=== PATIENT | female | born 1945 | race Caucasian/White ===

== ENCOUNTER → 2020-09-20 | Outpatient (CLI) | payer MEDICARE ==
[~2020-09-20] MED LIST: ACET325 PO; ALBU90OI INH; ALBU90OI6 INH; ASCO500 PO; ASPI81CH PO; AZIT250 PO; AZIT500 PO; Albuterol2.5 MG/0.5 INH; BENZ100A PO; CEPACOL SORE T1 EACH MM; CODGUAEL PO; DOXY100 PO; ESTMET; FERR325 PO; GUAI600T33 PO; HYDR10 PO; LEVFLO500 PO; LEVO750 PO; LOSA25 PO; METO25ER PO; OXYB5ER; PRED20 PO; PROZAC20 MG PO; SULTRIDS
[2020-09-20 09:26] LABS: BASOPHILS ABSOLUTE AUTO 0.02 K/mm3 (0.00-0.23); BASOPHILS PERCENT AUTO 1 % (0-2); EOSINOPHILS ABSOLUTE AUTO 0.05 K/mm3 (0.00-0.68); EOSINOPHILS PERCENT AUTO 2 % (0-6); Hematocrit 37.1 % (33.0-51.0); Hemoglobin 13.6 g/dL (11.5-16.0); IMMATURE GRAN ABSOLUTE AUTO 0.01 K/mm3 (0.00-0.10); IMMATURE GRAN PERCENT AUTO 0 % (0-1); LYMPHOCYTES PERCENT AUTO 41 % (21-46); MONOCYTES ABSOLUTE AUTO 0.33 K/mm3 (0.16-1.47); MONOCYTES PERCENT AUTO 10 % (4-13); Mean Corpuscular HGB 29.4 pg (26.0-34.0); Mean Corpuscular HGB Conc 36.7 g/dL (31.5-36.5); Mean Corpuscular Volume 80 fL (80-100); Mean Platelet Volume 10.8 fL (9.1-12.4); NEUTROPHILS ABSOLUTE AUTO 1.62 K/mm3 (1.96-9.15); NEUTROPHILS PERCENT AUTO 47 % (41-73); Platelet Count 169 K/mm3 (150-400); RDW Coefficient Variation 12.8 % (11.7-14.2); RDW Standard Deviation 36.5 fL (35.1-46.3); Red Blood Cell Count 4.63 M/mm3 (3.80-5.20); White Blood Cell Count 3.43 K/mm3 (4.00-11.30)
[2020-09-20 09:39] LABS: Alanine Aminotransfer (ALT/SGP 75 U/L (12-78); Albumin, Blood 3.4 g/dL (3.4-5.0); Alk Phos 153 U/L (40-126); Anion Gap 10 mmol/L (6-16); Aspartate Aminotrans (AST/SGOT 82 U/L (12-37); Bilirubin, Total 0.5 mg/dL (0.1-1.0); Blood Urea Nitrogen 19 mg/dL (8-24); Bun/Creatinine Ratio 12.7 (12.0-20.0); CO2, Blood 25 mmol/L (21-32); Calcium, Blood 8.4 mg/dL (8.5-10.1); Chloride, Blood 94 mmol/L (98-108); Globulin, Blood 3.5 g/dL (2.2-4.0); Glomerular Filtration Rate 34 (60-); Glucose, Blood 106 mg/dL (70-99); Potassium, Blood 4.3 mmol/L (3.5-5.5); Sodium, Blood 129 mmol/L (136-145); Total Protein, Blood 6.9 g/dL (6.4-8.2)
[2020-09-20 09:43] LABS: Troponin I <0.017 ng/mL (0.000-0.040)
[2020-09-21 08:10] LABS: HBSAG SCREEN Negative (Negative); HEP A AB, IGM Negative (Negative); HEP B CORE AB, IGM Negative (Negative); HEP C VIRUS AB <0.1 (0.0-0.9)
== END ==
LOC: LAB SHORT 09:19 → LAB EV 09:19
PROVIDERS: Physician Assistant
DX: T67.5XXA Heat exhaustion, unspecified, initial encounter (principal); R55 Syncope and collapse; R74.01 Elevation of levels of liver transaminase levels
CPT/HCPCS: 80053; 80074; 84484; 85025

== ENCOUNTER → 2022-10-25 | Outpatient (CLI) | payer MEDICARE ==
[2022-10-25 10:55] LABS: Microalbumin, Urine Quant. <5.000 mg/L (0.000-20.000); Protein, Urine Quantitative <5.0 mg/dL (0.0-11.9)
== END ==
LOC: LAB 08:17 → LAB SHORT 08:17
PROVIDERS: Internal Medicine Nephrology
DX: N18.30 Chronic kidney disease, stage 3 unspecified (principal); D63.1 Anemia in chronic kidney disease; N25.81 Secondary hyperparathyroidism of renal origin; E55.9 Vitamin D deficiency, unspecified; E78.00 Pure hypercholesterolemia, unspecified; R76.9 Abnormal immunological finding in serum, unspecified; R94.5 Abnormal results of liver function studies; R94.6 Abnormal results of thyroid function studies; D51.8 Other vitamin B12 deficiency anemias; D52.8 Other folate deficiency anemias; D50.9 Iron deficiency anemia, unspecified
CPT/HCPCS: 82043; 82570; 84156

== ENCOUNTER 2023-11-08 12:37 | Inpatient (IN) | payer OTHER ==
[~2023-11-08] VITALS: Ht 162.6 cm; Wt 61.4 kg
[~2023-11-08 12:37] MED LIST changes: -Amlodipine Bes2.5 MG PO; -BACL10 PO; -CALCITRIOL0.25 MC4 PO; -CARVEDILOL12.5 MG PO; -CLOP75 PO; -ESTRADIOL42.5 GM; -GABAPENTIN600 MG PO; -LIPITOR80 MG PO; -LOSA50 PO; -OMEP20ER PO; -Oxybutynin Chlo10 MG PO; -PANT20 PO; -SPIR25 PO
[2023-11-08 13:48] LABS: BASOPHILS ABSOLUTE AUTO 0.01 K/mm3 (0.00-0.23); BASOPHILS PERCENT AUTO 0 % (0-2); EOSINOPHILS ABSOLUTE AUTO 0.05 K/mm3 (0.00-0.68); EOSINOPHILS PERCENT AUTO 1 % (0-6); Hematocrit 30.8 % (33.0-51.0); Hemoglobin 10.5 g/dL (11.5-16.0); IMMATURE GRAN ABSOLUTE AUTO 0.02 K/mm3 (0.00-0.10); IMMATURE GRAN PERCENT AUTO 0 % (0-1); LYMPHOCYTES ABSOLUTE AUTO 1.27 K/mm3 (0.84-5.20); LYMPHOCYTES PERCENT AUTO 20 % (21-46); MONOCYTES PERCENT AUTO 9 % (4-13); Mean Corpuscular HGB 29.9 pg (26.0-34.0); Mean Corpuscular HGB Conc 34.1 g/dL (31.5-36.5); Mean Corpuscular Volume 88 fL (80-100); Mean Platelet Volume 11.1 fL (9.1-12.4); NEUTROPHILS ABSOLUTE AUTO 4.56 K/mm3 (1.96-9.15); NEUTROPHILS PERCENT AUTO 70 % (41-73); Platelet Count 120 K/mm3 (150-400); RDW Coefficient Variation 13.2 % (11.7-14.2); RDW Standard Deviation 41.8 fL (35.1-46.3); Red Blood Cell Count 3.51 M/mm3 (3.80-5.20); White Blood Cell Count 6.51 K/mm3 (4.00-11.30)
[2023-11-08 14:25] LABS: Albumin/Globulin Ratio 0.9 (0.8-1.8); Bilirubin, Total 1.1 mg/dL (0.1-1.0); Bun/Creatinine Ratio 12.4 (12.0-20.0); Calcium, Blood 8.5 mg/dL (8.5-10.1); Creatinine, Blood 1.13 mg/dL (0.40-1.00); Globulin, Blood 3.3 g/dL (2.2-4.0); Potassium, Blood 3.8 mmol/L (3.5-5.5); Total Protein, Blood 6.3 g/dL (6.4-8.2)
[2023-11-08] MEDS ORDERED: CALCITRIOL0.25 MC4 PO (14:45)
[2023-11-08] MEDS ORDERED: GABAPENTIN600 MG PO (14:45)
[2023-11-08] MEDS ORDERED: LIPITOR80 MG PO (14:45)
[2023-11-08] MEDS ORDERED: LOSA50 PO (14:46)
[2023-11-08] MEDS ORDERED: Oxybutynin Chlo10 MG PO (14:46)
[2023-11-08] MEDS ORDERED: OMEP20ER PO (14:46)
[2023-11-08] MEDS ORDERED: CARVEDILOL12.5 MG PO (14:46)
[2023-11-08] MEDS ORDERED: BACL10 PO (14:47)
[2023-11-08] MEDS ORDERED: ESTRADIOL42.5 GM (14:47)
[2023-11-08 14:57] LABS: Anti-Xa UFH, PHA Monitoring <0.10 IU/mL; International Normalized Ratio 1.12; Prothrombin Time Results 11.9 Sec (9.7-11.5)
[2023-11-08] MEDS ORDERED: Dose Adjust by Pharmacy XX STA (15:13)
[2023-11-08] MEDS ORDERED: Heparin Sodium 5000 Units/ML 1ML MDV IV ONE (15:15)
[2023-11-08] MEDS ORDERED: Heparin Sodium,Porcine/0.5 NS 500 ML IV SCH (15:15)
[2023-11-08] MEDS ORDERED: FLU VACC TS2024-25(6MOS UP)/PF 45 MCG/0.5 ML SYRINGE IM ONE (15:55)
[2023-11-08] MEDS ORDERED: Baclofen 10 MG Tab PO PRN (15:55)
[2023-11-08] MEDS ORDERED: Carvedilol 6.25 MG Tab PO SCH (17:00)
[2023-11-08 18:26] VITALS: BP 167/67
--- NOTE | 2023-11-08 19:09 | NUR ---
TRANSFER NOTE PT A&OX4, COOPERATIVE, AND CAN MAKE NEEDS KNOWN. RECEIVED REPORT FROM TREV Partida FROM ED. PT REPORTED CHEST PAIN WHILE AMBULATING TO BATHROOM WITH LILLIAN BOYD. PT ORIENTED TO ROOM AND HAS FAMILY AT BEDSIDE. CALL LIGHT WITHIN REACH.
[2023-11-08 20:09] VITALS: BP 142/60
[2023-11-08] MEDS ORDERED: Gabapentin 300 MG Cap PO SCH (21:00)
[2023-11-09] MEDS ORDERED: Dose Adjust by Pharmacy XX STA ×3 (00:16→17:57)
[2023-11-09 03:16] VITALS: BP 142/52
[2023-11-09 04:27] LABS: BASOPHILS ABSOLUTE AUTO 0.02 K/mm3 (0.00-0.23); BASOPHILS PERCENT AUTO 0 % (0-2); EOSINOPHILS ABSOLUTE AUTO 0.19 K/mm3 (0.00-0.68); EOSINOPHILS PERCENT AUTO 4 % (0-6); Hematocrit 29.5 % (33.0-51.0); Hemoglobin 10.7 g/dL (11.5-16.0); IMMATURE GRAN ABSOLUTE AUTO 0.01 K/mm3 (0.00-0.10); IMMATURE GRAN PERCENT AUTO 0 % (0-1); LYMPHOCYTES ABSOLUTE AUTO 1.31 K/mm3 (0.84-5.20); LYMPHOCYTES PERCENT AUTO 29 % (21-46); MONOCYTES ABSOLUTE AUTO 0.43 K/mm3 (0.16-1.47); MONOCYTES PERCENT AUTO 9 % (4-13); Mean Corpuscular HGB 30.5 pg (26.0-34.0); Mean Corpuscular HGB Conc 36.3 g/dL (31.5-36.5); Mean Corpuscular Volume 84 fL (80-100); Mean Platelet Volume 11.3 fL (9.1-12.4); NEUTROPHILS ABSOLUTE AUTO 2.63 K/mm3 (1.96-9.15); NEUTROPHILS PERCENT AUTO 57 % (41-73); Platelet Count 90 K/mm3 (150-400); RDW Coefficient Variation 13.2 % (11.7-14.2); Red Blood Cell Count 3.51 M/mm3 (3.80-5.20); White Blood Cell Count 4.59 K/mm3 (4.00-11.30)
[2023-11-09 04:40] LABS: Bun/Creatinine Ratio 12.4 (12.0-20.0); Calcium, Blood 8.4 mg/dL (8.5-10.1); Creatinine, Blood 1.05 mg/dL (0.40-1.00)
--- NOTE | 2023-11-09 05:28 | NUR ---
SHIFT SUMMARY PT A&Ox4 AND PLEASANT. FAMILY AT BEDSIDE AT START OF SHIFT AND VERY ATTENTIVE TO PT'S NEEDS AND HEALTH. PT DENIED CP/PRESSURE WHILE LAYING IN BED BUT REPORTED SLIGHT CP, THAT QUICKLY RESOLVED, WHEN AMBULATING TO BATHROOM. HEPARIN INFUSING T/O NIGHT PER EMAR. TROPONINS TRENDING DOWN. NO EVENTS ON TELE. VSS. BED ALARM ON. BED IN LOWEST POSITION AND CALL LIGHT IN REACH.
[2023-11-09] MEDS ORDERED: Omeprazole 20 MG CapCR PO SCH (06:00)
[2023-11-09] MEDS ORDERED: Trospium Chloride 20 MG Tab PO SCH (06:00)
[2023-11-09 07:22] VITALS: BP 156/83
[2023-11-09] MEDS ORDERED: Losartan Potassium 50 MG Tab PO SCH (09:00)
[2023-11-09] MEDS ORDERED: Atorvastatin 40 MG Tab PO SCH (09:00)
[2023-11-09] MEDS ORDERED: Spironolactone 25 MG Tab PO SCH (09:00)
[2023-11-09] MEDS ORDERED: AmLODIPine Besylate 5 MG Tab PO SCH (10:00)
[2023-11-09] MEDS ORDERED: Aspirin 81 MG Chew PO SCH (10:00)
[2023-11-09 10:08] VITALS: BP 175/74
[2023-11-09 10:37] LABS: Mean Platelet Volume 11.8 fL (9.1-12.4); Platelet Count 106 K/mm3 (150-400)
[2023-11-09 15:09] VITALS: BP 139/61
--- NOTE | 2023-11-09 17:58 | NUR ---
SHIFT SUMMARY PT A&OX4, ABLE TO MAKE NEEDS KNOWN, COOPERATIVE WITH PROCEDURES. PT WILL BE HAVING ANGIOGRAM AT 0900 ON 11/09. PT NEEDS TO BE NPO BY MIDNIGHT TONIGHT. SURROUDED BY FAMILY IN THE ROOM. NO COMPLAINTS OF PAIN FOR THE SHIFT. BED IN THE LOWEST POSITION, CALL LIGHT WITHIN REACH.
[2023-11-09 19:47] VITALS: BP 149/62
[2023-11-10] VITALS (12 sets, daily range): BP systolic 88–144; BP diastolic 55–94
--- NOTE | 2023-11-10 04:35 | NUR ---
SHIFT SUMMARY PT A&Ox4 AND PLEASANT. CALLS APPROPRIATELY. DENIED CP/PRESSURE. CONTINUING HEPARIN INFUSION PER ORDERS. NO ACUTE CHANGES. PT NPO AT MIDNIGHT. VSS. NO EVENTS ON TELE. BED ALARM ON. BED IN LOWEST POSITION AND CALL LIGHT IN REACH.
[2023-11-10 05:42] LABS: BASOPHILS ABSOLUTE AUTO 0.02 K/mm3 (0.00-0.23); BASOPHILS PERCENT AUTO 1 % (0-2); EOSINOPHILS ABSOLUTE AUTO 0.25 K/mm3 (0.00-0.68); EOSINOPHILS PERCENT AUTO 6 % (0-6); Hematocrit 31.9 % (33.0-51.0); Hemoglobin 10.9 g/dL (11.5-16.0); IMMATURE GRAN ABSOLUTE AUTO 0.01 K/mm3 (0.00-0.10); IMMATURE GRAN PERCENT AUTO 0 % (0-1); LYMPHOCYTES PERCENT AUTO 28 % (21-46); MONOCYTES ABSOLUTE AUTO 0.28 K/mm3 (0.16-1.47); MONOCYTES PERCENT AUTO 7 % (4-13); Mean Corpuscular HGB 29.5 pg (26.0-34.0); Mean Corpuscular HGB Conc 34.2 g/dL (31.5-36.5); Mean Corpuscular Volume 86 fL (80-100); Mean Platelet Volume 11.4 fL (9.1-12.4); NEUTROPHILS ABSOLUTE AUTO 2.28 K/mm3 (1.96-9.15); NEUTROPHILS PERCENT AUTO 58 % (41-73); Platelet Count 115 K/mm3 (150-400); RDW Coefficient Variation 13.2 % (11.7-14.2); RDW Standard Deviation 41.3 fL (35.1-46.3); White Blood Cell Count 3.94 K/mm3 (4.00-11.30)
[2023-11-10 06:22] LABS: Bun/Creatinine Ratio 10.7 (12.0-20.0); Creatinine, Blood 1.12 mg/dL (0.40-1.00); Potassium, Blood 3.6 mmol/L (3.5-5.5)
[2023-11-10] MEDS ORDERED: NS 250 ML IV ONE (08:03)
[2023-11-10] MEDS ORDERED: Heparin Sodium 1000 Units/ML 10ML MDV ONE (08:03)
[2023-11-10] MEDS ORDERED: Nitroglycerin 2 MG/20 ML BTL ONE (08:03)
[2023-11-10] MEDS ORDERED: Verapamil HCL 2.5 MG/ML 2ML Injection ONE (08:03)
[2023-11-10] MEDS ORDERED: NS 1,000 ML IV ONE ×2 (08:03→08:30)
[2023-11-10] MEDS ORDERED: Midazolam HCl 1MG / ML 2ML Vial ONE (08:13)
[2023-11-10] MEDS ORDERED: FentaNYL Citrate 50 MCG/ML 2 ML Injection ONE (08:14)
--- NOTE | 2023-11-10 09:42 | NUR ---
TRANSFER: PT TAKEN FOR PROCEDURE AROUND 0825 THIS AM. PT HAD SOME CONCERNS/ANXIETY THIS AM. PROCEDURE EXPLAINED TO PT AND IS AWARE OF ADDRESSING FURTHER CONCERNS IN ART EDUCATION PROFESSOR PRIOR TO PROCEDURE IF NEEDED. BEDSIDE REPORT GIVEN TO OLIVER JAVIER IN PCU. PT TO GO TO ROOM PCU 8 POST ANGIOGRAM. ALL BELONGINGS TAKEN TO ROOM.
--- NOTE | 2023-11-10 10:21 | NUR ---
PCU ARRIVAL PT BROUGHT TO PCU-8 BY WHEELCHAIR. UPON ARRIVAL, PT PALE IN COLOR, REPORTING NEED TO LAY DOWN. PT ASSISTED TO BED FROM WHEELCHAIR BY 2 STAFF MEMBERS. PT BP LOW & PT NAUSEOUS. PT COLOR IMPROVED WHILE LAYING IN BED. EMESIS BAG PROVIDED. NO ANTINAUSEA MEDICATION ORDERED IN EMAR. CALL OUT TO MD WYLIE TO REPORT PT NAUSEA & LOW BP. PT FAMILY AT BEDSIDE. R RADIAL TRB IN PLACE. SITE WNL W/ NO BLEEDING & NO HEMATOMA. ARM BOARD IN PLACE. PT DROWSY. BP LOW, OTHERWISE VSS. SPO2 > 92% ON RA. MONITOR SHOWING SR, HR 60s.
[2023-11-10] MEDS ORDERED: Ondansetron HCl 2 MG / ML 2ML Vial IV PRN (10:30)
[2023-11-10] MEDS ORDERED: Amlodipine Bes2.5 MG PO (14:52)
[2023-11-10] MEDS ORDERED: PANT20 PO (14:52)
[2023-11-10] MEDS ORDERED: SPIR25 PO (14:53)
[2023-11-10] MEDS ORDERED: ASPI81CH PO (14:53)
[2023-11-10] MEDS ORDERED: CLOP75 PO (14:54)
--- NOTE | 2023-11-10 15:50 | NUR ---
DISCHARGE HOME PT A&O X4. PT W/ NO FURTHER LOW BPs. VSS. SPO2 > 92% ON RA. R RADIAL TRB RECOVERY WNL W/ NO BLEEDING & NO HEMATOMA. TRANSPARENT DRESSING APPLIED. ARM BOARD IN PLACE. PT COMPLIANT W/ POST ANGIOGRAM MOBILITY RESTRICTIONS. HVAC REFRIGERATION TECHNICIAN & HOSPITALIST AGREEABLE FOR PT DISCHARGE. DISCHARGE INSTRUCTIONS REVIEWED W/ PT & SENT HOME W/ PT. PIVs REMOVED. PT TAKEN OUT IN WHEELCHAIR W/ BELONGINGS @ APPROX 1545.
== END 2023-11-10 15:40 | disposition home or self-care (01) | DRG 281 ==
LOC: ER 12:37 → MEDS 12:38 → PCU 11-10 09:50
PROVIDERS: Internal Medicine Cardiovascular Disease; Student in an Organized Health Care Education/Training Program; ADMIT Internal Medicine
PROC: 4A023N7 Measurement of Cardiac Sampling and Pressure, Left Heart, Percutaneous Approach (ICD-10-PCS; principal; 2023-11-10)
PROC: B2111ZZ Fluoroscopy of Multiple Coronary Arteries using Low Osmolar Contrast (ICD-10-PCS; 2023-11-10)
DX: I21.4 Non-ST elevation (NSTEMI) myocardial infarction (principal); I13.0 Hypertensive heart and chronic kidney disease with heart failure and stage 1 through stage 4 chronic kidney disease, or unspecified chronic kidney disease; I42.0 Dilated cardiomyopathy; I50.30 Unspecified diastolic (congestive) heart failure; E78.5 Hyperlipidemia, unspecified; D63.1 Anemia in chronic kidney disease; N18.31 Chronic kidney disease, stage 3a; G25.0 Essential tremor; K21.9 Gastro-esophageal reflux disease without esophagitis; G25.81 Restless legs syndrome; G89.29 Other chronic pain; N39.41 Urge incontinence; I44.7 Left bundle-branch block, unspecified; D69.6 Thrombocytopenia, unspecified; Z79.899 Other long term (current) drug therapy; Z87.891 Personal history of nicotine dependence; Z98.890 Other specified postprocedural states; Z90.710 Acquired absence of both cervix and uterus; Z79.82 Long term (current) use of aspirin; Z79.2 Long term (current) use of antibiotics; Z85.3 Personal history of malignant neoplasm of breast; Z90.10 Acquired absence of unspecified breast and nipple; R07.9 Chest pain, unspecified
CPT/HCPCS: 36415; 71046; 80048; 80053; 83880; 84484; 85025; 85049; 85347; 85520; 85610; 93005; 93010; 93306; 93458; 93571; 93572; 96365; 96366; 96376; 99152; 99153; 99285-25; A9270; C1769; C1887; C1894; G0378; J1644; J2250; J3010; J7030; J7050; Q9967

== ENCOUNTER → 2023-11-08 | Outpatient (CLI) | payer OTHER ==
[~2023-11-08] MED LIST changes: +Amlodipine Bes2.5 MG PO; +BACL10 PO; +CALCITRIOL0.25 MC4 PO; +CARVEDILOL12.5 MG PO; +CLOP75 PO; +ESTRADIOL42.5 GM; +GABAPENTIN600 MG PO; +LIPITOR80 MG PO; +LOSA50 PO; +OMEP20ER PO; +Oxybutynin Chlo10 MG PO; +PANT20 PO; +SPIR25 PO
[2023-11-08 11:50] LABS: BASOPHILS ABSOLUTE AUTO 0.02 K/mm3 (0.00-0.23); BASOPHILS PERCENT AUTO 0 % (0-2); EOSINOPHILS ABSOLUTE AUTO 0.02 K/mm3 (0.00-0.68); EOSINOPHILS PERCENT AUTO 0 % (0-6); Hematocrit 33.4 % (33.0-51.0); Hemoglobin 11.3 g/dL (11.5-16.0); IMMATURE GRAN ABSOLUTE AUTO 0.04 K/mm3 (0.00-0.10); IMMATURE GRAN PERCENT AUTO 1 % (0-1); LYMPHOCYTES ABSOLUTE AUTO 1.28 K/mm3 (0.84-5.20); LYMPHOCYTES PERCENT AUTO 17 % (21-46); MONOCYTES ABSOLUTE AUTO 0.59 K/mm3 (0.16-1.47); MONOCYTES PERCENT AUTO 8 % (4-13); Mean Corpuscular HGB 29.5 pg (26.0-34.0); Mean Corpuscular HGB Conc 33.8 g/dL (31.5-36.5); Mean Corpuscular Volume 87 fL (80-100); NEUTROPHILS ABSOLUTE AUTO 5.44 K/mm3 (1.96-9.15); NEUTROPHILS PERCENT AUTO 74 % (41-73); RDW Coefficient Variation 13.3 % (11.7-14.2); RDW Standard Deviation 41.9 fL (35.1-46.3); Red Blood Cell Count 3.83 M/mm3 (3.80-5.20); White Blood Cell Count 7.39 K/mm3 (4.00-11.30)
[2023-11-08 12:01] LABS: Albumin, Blood 3.1 g/dL (3.4-5.0); Albumin/Globulin Ratio 0.9 (0.8-1.8); Bilirubin, Total 1.3 mg/dL (0.1-1.0); Bun/Creatinine Ratio 9.4 (12.0-20.0); Calcium, Blood 8.8 mg/dL (8.5-10.1); Creatinine, Blood 1.27 mg/dL (0.40-1.00); Globulin, Blood 3.6 g/dL (2.2-4.0); Potassium, Blood 3.7 mmol/L (3.5-5.5); Total Protein, Blood 6.7 g/dL (6.4-8.2)
[2023-11-08 12:09] LABS: Mean Platelet Volume 10.8 fL (9.1-12.4); Platelet Count 133 K/mm3 (150-400)
== END | disposition home or self-care (01) ==
LOC: LAB SHORT 11:45 → LAB 11:45
PROVIDERS: Internal Medicine
DX: R07.9 Chest pain, unspecified (principal)
CPT/HCPCS: 80053; 83880; 84484; 85025

== ENCOUNTER 2023-11-11 09:23 | Inpatient (IN) | payer OTHER ==
[2023-11-11] VITALS (8 sets, daily range): BP systolic 118–147; BP diastolic 42–78
[~2023-11-11] VITALS: Ht 162.6 cm; Wt 62.2 kg
[~2023-11-11 09:23] MED LIST changes: +Amlodipine Bes2.5 MG PO; +BACL10 PO; +CALCITRIOL0.25 MC4 PO; +CARVEDILOL12.5 MG PO; +CLOP75 PO; +ESTRADIOL42.5 GM; +GABAPENTIN600 MG PO; +LIPITOR80 MG PO; +LOSA50 PO; +OMEP20ER PO; +Oxybutynin Chlo10 MG PO; +PANT20 PO; +SPIR25 PO
[2023-11-11 09:54] LABS: BASOPHILS ABSOLUTE AUTO 0.03 K/mm3 (0.00-0.23); BASOPHILS PERCENT AUTO 1 % (0-2); EOSINOPHILS ABSOLUTE AUTO 0.22 K/mm3 (0.00-0.68); EOSINOPHILS PERCENT AUTO 4 % (0-6); Hematocrit 32.8 % (33.0-51.0); IMMATURE GRAN ABSOLUTE AUTO 0.01 K/mm3 (0.00-0.10); IMMATURE GRAN PERCENT AUTO 0 % (0-1); LYMPHOCYTES ABSOLUTE AUTO 1.08 K/mm3 (0.84-5.20); LYMPHOCYTES PERCENT AUTO 19 % (21-46); MONOCYTES ABSOLUTE AUTO 0.32 K/mm3 (0.16-1.47); MONOCYTES PERCENT AUTO 6 % (4-13); Mean Corpuscular HGB 29.3 pg (26.0-34.0); Mean Corpuscular HGB Conc 33.5 g/dL (31.5-36.5); Mean Corpuscular Volume 87 fL (80-100); Mean Platelet Volume 10.4 fL (9.1-12.4); NEUTROPHILS PERCENT AUTO 71 % (41-73); Platelet Count 178 K/mm3 (150-400); RDW Coefficient Variation 13.2 % (11.7-14.2); RDW Standard Deviation 41.7 fL (35.1-46.3); Red Blood Cell Count 3.76 M/mm3 (3.80-5.20); White Blood Cell Count 5.76 K/mm3 (4.00-11.30)
[2023-11-11 10:12] LABS: Albumin, Blood 3.4 g/dL (3.4-5.0); Albumin/Globulin Ratio 0.8 (0.8-1.8); Bilirubin, Total 0.6 mg/dL (0.1-1.0); Bun/Creatinine Ratio 6.9 (12.0-20.0); Calcium, Blood 9.1 mg/dL (8.5-10.1); Creatinine, Blood 1.45 mg/dL (0.40-1.00); Total Protein, Blood 7.4 g/dL (6.4-8.2)
[2023-11-11 11:57] LABS: International Normalized Ratio 0.99; Prothrombin Time Results 10.6 Sec (9.7-11.5)
[2023-11-11] MEDS ORDERED: Clopidogrel Bisulfate 75 MG Tab PO ONE (14:10)
[2023-11-11] MEDS ORDERED: Heparin Sodium 5000 Units/ML 1ML MDV IV ONE (14:10)
[2023-11-11] MEDS ORDERED: Heparin Sodium 1000 Units/ML 10ML MDV ONE (14:14)
[2023-11-11] MEDS ORDERED: Nitroglycerin 2 MG/20 ML BTL ONE (14:14)
[2023-11-11] MEDS ORDERED: NS 1,000 ML IV ONE ×2 (14:14→14:25)
[2023-11-11] MEDS ORDERED: NS 250 ML IV ONE (14:14)
[2023-11-11] MEDS ORDERED: Aspirin 81 MG Chew PO ONE (14:15)
[2023-11-11] MEDS ORDERED: NS 1,000 ML IV SCH ×2 (14:20→15:05)
[2023-11-11] MEDS ORDERED: Midazolam HCl 1MG / ML 2ML Vial ONE ×2 (14:24→16:14)
[2023-11-11] MEDS ORDERED: FentaNYL Citrate 50 MCG/ML 2 ML Injection ONE ×2 (14:24→16:14)
[2023-11-11] MEDS ORDERED: TraZODone HCl 50 MG Tab PO PRN (15:05)
[2023-11-11] MEDS ORDERED: Ondansetron HCl 2 MG / ML 2ML Vial IV PRN (15:05)
[2023-11-11] MEDS ORDERED: Naloxone HCl 0.4MG / ML 1ML Vial IV PRN (15:10)
[2023-11-11] MEDS ORDERED: HYDROcodone 10-APAP 325 TAB PO PRN (15:10)
[2023-11-11] MEDS ORDERED: FentaNYL Citrate 50 MCG/ML 2 ML Injection IV PRN (15:10)
[2023-11-11] MEDS ORDERED: Acetaminophen 325 MG TABLET PO PRN (15:10)
[2023-11-11] MEDS ORDERED: FLU VACC TS2024-25(6MOS UP)/PF 45 MCG/0.5 ML SYRINGE IM SCH (15:10)
[2023-11-11] MEDS ORDERED: Labetalol HCL 5 MG/ML 4ML Injection (Single Dose) ONE ×2 (15:13→16:15)
[2023-11-11] MEDS ORDERED: HydrALAZINE HCl 20 MG / ML 1ML Vial ONE (16:09)
--- NOTE | 2023-11-11 19:30 | NUR ---
SHIFT SUMMARY: CARDIAC: POST FEMORAL ANGIO. DRESSING IN PLACE WITHOUT AND BLEEDING, HEMATOMA FORMATION, OR SWELLING. PT HOB AT 30 DEGREES. PT REPORTING ACIF REFLUX AFTER DRINKING WATER THAT WAS RELIEVED AFTER HEAD OF BED WAS ELEVATED. REMAINS IN SINUS RHYTHM WITH A BUNDLE BRANCH BLOCK RATE IN THE 80'S. PT DENIES ANY CP OR SOB SINCE ARRIVAL. RESP: LUNG SOUNDS CLEAR THROUGHOUT. RESPIRATIONS EQUAL AND NONLABORED. ON RA. DENIES ANY SOB. GI/: PT REPORTS THAT SHE HAS NOT HAD A BOWEL MOVEMENT IN 3 OR 4 DAYS. PURE WICK PLACED DUE TO PT BEING BEDREST POST OP. LINES: 20G IV TO LFA. PATENT. PT ARRIVED FROM THE SMASH PIECER AT 1645 POST ANGIO THAT WAS ACCESSED VIA R FEMORAL. 2 STENTS WERE PLACED IN THE RCA. PT ARRIVED WITH DRESSING IN PACE TO R GROIN. NO BLEEDING, HEMATOMA FORMATION, OR BRUISING PRESENT ON ARRIVAL. POST OP VITAL SIGNS WERE STARTED ON ARRIVAL.
[2023-11-11] MEDS ORDERED: Famotidine 10 MG/ML 2ML Vial IV SCH (21:00)
[2023-11-11] MEDS ORDERED: Gabapentin 300 MG Cap PO SCH (21:00)
[2023-11-12 03:57] VITALS: BP 149/65
[2023-11-12 04:13] LABS: BASOPHILS ABSOLUTE AUTO 0.02 K/mm3 (0.00-0.23); BASOPHILS PERCENT AUTO 1 % (0-2); EOSINOPHILS ABSOLUTE AUTO 0.19 K/mm3 (0.00-0.68); EOSINOPHILS PERCENT AUTO 4 % (0-6); Hematocrit 27.6 % (33.0-51.0); Hemoglobin 9.2 g/dL (11.5-16.0); IMMATURE GRAN ABSOLUTE AUTO 0.01 K/mm3 (0.00-0.10); IMMATURE GRAN PERCENT AUTO 0 % (0-1); LYMPHOCYTES ABSOLUTE AUTO 1.12 K/mm3 (0.84-5.20); LYMPHOCYTES PERCENT AUTO 26 % (21-46); MONOCYTES ABSOLUTE AUTO 0.33 K/mm3 (0.16-1.47); MONOCYTES PERCENT AUTO 8 % (4-13); Mean Corpuscular HGB 29.3 pg (26.0-34.0); Mean Corpuscular HGB Conc 33.3 g/dL (31.5-36.5); Mean Corpuscular Volume 88 fL (80-100); Mean Platelet Volume 10.6 fL (9.1-12.4); NEUTROPHILS ABSOLUTE AUTO 2.71 K/mm3 (1.96-9.15); NEUTROPHILS PERCENT AUTO 62 % (41-73); Platelet Count 129 K/mm3 (150-400); RDW Coefficient Variation 13.2 % (11.7-14.2); RDW Standard Deviation 42.1 fL (35.1-46.3); Red Blood Cell Count 3.14 M/mm3 (3.80-5.20); White Blood Cell Count 4.38 K/mm3 (4.00-11.30)
--- NOTE | 2023-11-12 05:49 | NUR ---
END OF SHIFT NOTE: NO ACUTE OVERNIGHT EVENTS. PT A/OX4, ABLE TO COMMUNICATE NEEDS W/ STAFF. HR 70-80'S, SINUS RHYTHM W/ BBB ON TELE. SBP 110-140'S, DENIES CHEST PAIN/PRESSURE OVERNIGHT. SPO2 >95% ON RA, RESPIRATIONS EVEN & UNLABORED. AFEBRILE. R GROIN SITE REMAINS INTACT W/ CLEAR DRESSING IN PLACE; FULLY RECOVERED. MILD BRUISING NOTED W/O ACTIVE BLEEDING OR HEMATOMA FORMATION PRESENT. PT ABLE TO AMBULATE TO RESTROOM TO VOID W/ SBA FOR LINE MANAGEMENT. 1200ML URINE OUTPUT OF THIS TIME. NO BM'S. NS INFUSING AT 100ML/HR PER ORDER. ABLE TO REPOSITION SELF INDEPENDENTLY IN BED. NO OTHER NEEDS AT THIS TIME. CALL LIGHT IN REACH, BED IN LOWEST POSITION.
[2023-11-12 05:57] LABS: Albumin, Blood 2.6 g/dL (3.4-5.0); Albumin/Globulin Ratio 0.9 (0.8-1.8); Bilirubin, Total 0.3 mg/dL (0.1-1.0); Bun/Creatinine Ratio 9.3 (12.0-20.0); Calcium, Blood 8.6 mg/dL (8.5-10.1); Creatinine, Blood 1.18 mg/dL (0.40-1.00); Potassium, Blood 4.1 mmol/L (3.5-5.5); Total Protein, Blood 5.6 g/dL (6.4-8.2)
[2023-11-12] MEDS ORDERED: Clopidogrel Bisulfate 75 MG Tab PO SCH (07:00)
[2023-11-12] MEDS ORDERED: Aspirin 81 MG Chew PO SCH (07:00)
[2023-11-12 08:00] VITALS: BP 145/56
[2023-11-12] MEDS ORDERED: Atorvastatin 40 MG Tab PO SCH (09:00)
[2023-11-12] MEDS ORDERED: Gabapentin 300 MG Cap PO SCH (09:00)
[2023-11-12] MEDS ORDERED: Losartan Potassium 50 MG Tab PO SCH (09:00)
--- NOTE | 2023-11-12 11:09 | NUR ---
VERBAL AND WRITTEN DISCHARGE INSTRUCTIONS. ANGIO SEAL TO RIGHT GROIN SITE, NON TENDER, NO BRUSING OR HEMATOMA NOTED. DC'D VIA WHEELCHAIR WITH FAMILY.
[2023-11-13] MEDS ORDERED: Calcitriol 0.25 MCG Cap PO SCH (09:00)
== END 2023-11-12 10:22 | disposition home or self-care (01) | DRG 322 ==
LOC: ER 09:23 → ICUE 15:00 → PCU 16:36
PROVIDERS: Emergency Medicine; Student in an Organized Health Care Education/Training Program; ADMIT Family Medicine
PROC: 027035Z Dilation of Coronary Artery, One Artery with Two Drug-eluting Intraluminal Devices, Percutaneous Approach (ICD-10-PCS; principal; 2023-11-11)
PROC: B2111ZZ Fluoroscopy of Multiple Coronary Arteries using Low Osmolar Contrast (ICD-10-PCS; 2023-11-11)
PROC: B2151ZZ Fluoroscopy of Left Heart using Low Osmolar Contrast (ICD-10-PCS; 2023-11-11)
PROC: 4A023N7 Measurement of Cardiac Sampling and Pressure, Left Heart, Percutaneous Approach (ICD-10-PCS; 2023-11-11)
DX: I21.4 Non-ST elevation (NSTEMI) myocardial infarction (principal); I42.0 Dilated cardiomyopathy; K21.9 Gastro-esophageal reflux disease without esophagitis; E78.5 Hyperlipidemia, unspecified; N18.31 Chronic kidney disease, stage 3a; I12.9 Hypertensive chronic kidney disease with stage 1 through stage 4 chronic kidney disease, or unspecified chronic kidney disease; I44.7 Left bundle-branch block, unspecified; G25.81 Restless legs syndrome; I25.2 Old myocardial infarction; Z85.3 Personal history of malignant neoplasm of breast; Z90.10 Acquired absence of unspecified breast and nipple; Z90.710 Acquired absence of both cervix and uterus; Z98.890 Other specified postprocedural states; Z79.02 Long term (current) use of antithrombotics/antiplatelets; Z79.82 Long term (current) use of aspirin; Z79.899 Other long term (current) drug therapy
CPT/HCPCS: 36415; 76937; 80053; 84484; 85025; 85347; 85610; 85730; 92978; 93458; 94762; 96361; 96374; 99152; 99153; 99285-25; A9270; C1725; C1753; C1760; C1769; C1874; C1887; C1894; C9600; J0360; J1644; J2250; J3010; J7030; J7050; Q9967